=== PATIENT | male | born 1995 | race Caucasian/White ===

== ENCOUNTER 2021-12-12 18:20 | Emergency (ER) | payer SELFPAY ==
[~2021-12-12] VITALS: Ht 170.2 cm; Wt 70.0 kg
[2021-12-12] MEDS ORDERED: IBUPROFEN 600MG TABLET PO ONE (20:30)
[2021-12-12] MEDS ORDERED: DEXAMETHASONE 10 MG/ML VIAL IM ONE (20:30)
[2021-12-12] MEDS ORDERED: DEXAMETHASONE 10 MG/ML VIAL IM NR (20:45)
[2021-12-12] MEDS ORDERED: IBUPROFEN 600MG TABLET PO NR (20:45)
[2021-12-12 21:08] VITALS: BP 112/78
== END 2021-12-12 21:00 | disposition home or self-care (01) ==
LOC: ER 18:20
DX: J03.90 Acute tonsillitis, unspecified (principal); R50.9 Fever, unspecified; R13.10 Dysphagia, unspecified
CPT/HCPCS: 87070; 87430; 96372; 99283; J1100